=== PATIENT | male | born 1985 | race African-American/Black ===

== ENCOUNTER 2017-06-10 15:38 | Emergency (ER) | payer MEDICAID, OTHER ==
[~2017-06-10] VITALS: Ht 172.7 cm; Wt 96.0 kg
[2017-06-10 20:30] VITALS: BP 118/80
== END 2017-06-10 21:11 | disposition home or self-care (01) ==
LOC: ER 15:48
DX: Z48.02 Encounter for removal of sutures (principal); F17.210 Nicotine dependence, cigarettes, uncomplicated
CPT/HCPCS: 99281; Z7610

== ENCOUNTER 2022-04-30 11:40 | Emergency (ER) | payer MEDICAID, OTHER ==
[~2022-04-30] VITALS: Ht 172.7 cm; Wt 104.5 kg
[2022-04-30] MEDS ORDERED: IBUPROFEN 600MG TABLET PO STA (12:31)
[2022-04-30] MEDS ORDERED: NAPR500T7 PO (15:02)
[2022-04-30 15:17] VITALS: BP 134/78
== END 2022-04-30 15:17 | disposition home or self-care (01) ==
LOC: ER 11:40
DX: M79.642 Pain in left hand (principal); M79.641 Pain in right hand
CPT/HCPCS: 73130; 99283